=== PATIENT | male | born 1990 | race American Indian/Alaskan Native ===

== ENCOUNTER 2018-11-12 15:37 | Emergency (ER) | payer BC, OTHER ==
[2018-11-12 16:21] VITALS: BP 124/88
--- NOTE | 2018-11-12 20:28 | Emergency Department Report ---
[facility] Chief Complaint: Eye Problems Stated Complaint: EYES RED Time Seen by Provider: 11/12/18 19:46 Duration: 2 Days Severity: severe Symptoms: Yes Eye Itching, Yes Eye Redness, Yes Purulent Drainage, No Blurred Vision, No Preceding URI, No H/O Allergic Rhinitis, No Contact Lens Use, No Trauma, No Fever, No Headache Other History: 28-year-old -[place] male presents to the emergency room for bilateral red eyes for 2 days of watery crusting of the eyelashes and itchiness. Patient denies any blurred vision ports mild pain denies any trauma to the eyes. Patient reports his try some [id number] eyedrops which he fills and made worse. Patient reports no past medical history currently takes no medications on a daily basis and has no known drug allergies. ED Review of Systems ROS: Stated complaint: EYES RED Other details as noted in HPI Comment: All other systems reviewed and negative Eyes: eye pain, eye discharge ED Past Medical Hx - Past Medical History Previous Medical History?: No - Surgical History Past Surgical History?: No - Social History Smoking Status: Never Smoker Substance Use Type: Alcohol - Medications Home Medications: Home Medications Medication Instructions Recorded Confirmed Last Taken Type Erythromycin [Erythromycin Ophth 1 applic OP QID 10 Days #1 tube 11/12/18 Unknown Rx Oint] [facility] Exam - Exam General: Vital signs noted. No distress. Alert and acting appropriately. Eye Exam: Both Injection, Both Purulent Discharge, Neither Abnormal Pupil, Neither Eye Foreign Body, Neither Lid Foreign Body, Neither Photophobia HEENT: No Nasal Congestion, No Pharyngeal Erythema Remainder of HEENT: Normal Lungs: Yes Clear Lung Sounds ED Course Vital Signs 11/12/18 16:18 Temperature 97.5 F L Pulse Rate 78 Respiratory 16 Rate Blood Pressure 124/88 O2 Sat by Pulse 97 Oximetry ED Medical Decision Making - Medical Decision Making Patient's been evaluated by this provider in fast track. Discussed patient's appears to be bilateral conjunctivitis. We'll treat patient with erythromycin ophthalmic ointment antibiotic. Discussed the patient if symptoms persist or gets worse to follow-up with an plant and instrument engineer. Patient verbalized understanding Critical care attestation.: If time is entered above; I have spent that time in minutes in the direct care of this critically ill patient, excluding procedure time. ED Disposition Clinical Impression: Conjunctivitis Qualifiers: Conjunctivitis type: acute Acute conjunctivitis type: unspecified Laterality: bilateral Qualified Code(s): H10.33 - Unspecified acute conjunctivitis, bilateral Disposition: DC-01 TO HOME OR SELFCARE Is pt being admited?: No Does the pt Need Aspirin: No Condition: Stable Instructions: Conjunctivitis (ED) Additional Instructions: Please use antibiotic eye ointment as prescribed. Please wash her hands prior to administering antibiotics and after administering antibiotics. If his symptoms persist or gets worse please follow-up with an plant and instrument engineer. Prescriptions: Erythromycin [Erythromycin Ophth Oint] 1 applic OP QID 10 Days #1 tube Referrals: [facility] [Provider Group] - 3-5 Days [facility] [Provider Group] - 3-5 Days Forms: Work/School Release Form(ED)
== END 2018-11-12 20:54 | disposition home or self-care (01) ==
LOC: ED 15:37
DX: H10.33 Unspecified acute conjunctivitis, bilateral (principal)
CPT/HCPCS: 99282